=== PATIENT | female | born 1970 | race Caucasian/White ===

== ENCOUNTER 2019-08-09 13:48 | Emergency (ER) | payer OTHER ==
[~2019-08-09] VITALS: Ht 172.7 cm; Wt 95.6 kg
[2019-08-09 13:51] VITALS: BP 138/85
[2019-08-09] MEDS ORDERED: PROPARACAINE OPHTH 0.5%, 15ML ONE (14:29)
[2019-08-09] MEDS ORDERED: FLUORESCEIN OPHTHALMIC 1 MG STRIP ONE (14:30)
--- NOTE | 2019-08-09 14:33 | NUR ---
DR. GONZALES AT BEDSIDE.
[2019-08-09] MEDS ORDERED: PROPARACAINE OPHTH 0.5%, 15ML EACHEYE ONE (15:00)
[2019-08-09] MEDS ORDERED: FLUORESCEIN/BENOXINATE 5 ML DROPS OP ONE (15:00)
--- NOTE | 2019-08-09 15:59 | NUR ---
Patient given discharge instructions and they have confirmed that they understand the instructions. Patient ambulatory with steady gait.
== END 2019-08-09 16:00 | disposition home or self-care (01) ==
LOC: ED 15:19
DX: H10.211 Acute toxic conjunctivitis, right eye (principal)
CPT/HCPCS: 99283